=== PATIENT | female | born 1960 | race Caucasian/White ===

== ENCOUNTER 2017-12-31 14:38 | Inpatient (IN) | payer MEDICARE, OTHER ==
[~2017-12-31] VITALS: Ht 167.6 cm; Wt 72.6 kg
[2017-12-31 14:42] VITALS: BP 115/60
--- NOTE | 2017-12-31 14:49 | Emergency Room Report ---
History of Present Illness General Chief Complaint: Upper Respiratory Illness Source: Patient, EMS Present Illness HPI 57-year-old female, history of pacemaker, COPD, presenting with cough and shortness of breath for one week. States that she is short of breath at rest and on exertion. Denies any fever chills nausea vomiting. States that she still currently smokes 4 cigarettes a day. No chest pain or abdominal pain Allergies: Coded Allergies: No Known Allergies (Unverified , 12/31/17) Patient History Past Medical History: see triage record Past Surgical History: none Pertinent Family History: none Last Menstrual Period: N/A Reviewed Nursing Documentation: PMH: Agreed; PSxH: Agreed Nursing Documentation-PMH Past Medical History: No History, Except For History Of Psychiatric Problem: Yes - SCHIZOPHRENIA Review of Systems All Other Systems: negative except mentioned in HPI Physical Exam Vital Signs Date Time Temp Pulse Resp B/P (MAP) Pulse Ox O2 Delivery O2 Flow Rate FiO2 12/31/17 14:32 97.7 65 16 115/60 96 Room Air 97.7 Sp02 EP Interpretation: reviewed, normal General Appearance: alert, GCS 15, non-toxic, mild distress Head: normocephalic, atraumatic Eyes: bilateral eye normal inspection, bilateral eye PERRL, bilateral eye EOMI ENT: normal ENT inspection, normal pharynx, normal voice, moist mucus membranes Neck: normal inspection, full range of motion, supple Respiratory: other - Wheezing and coarse breath sounds worse on the left side than the right, speaking complete sentences Cardiovascular #1: normal inspection, regular rate, rhythm, no edema, normal capillary refill Cardiovascular #2: 2+ radial (R), 2+ radial (L) Gastrointestinal: normal inspection, non tender, soft, non-distended, no guarding Musculoskeletal: normal inspection, back normal, normal range of motion, non- tender Neurologic: normal inspection, alert, oriented x3, responsive, motor strength/ tone normal, sensory intact, normal gait, speech normal Psychiatric: normal inspection, judgement/insight normal, memory normal Skin: normal inspection, normal color, no rash, warm/dry, well hydrated, normal turgor Medical Decision Making Diagnostic Impression: Primary Impression: COPD exacerbation ER Course 57-year-old female p/w cough for 7 days. DDX: Viral URI vs. pneumonia Plan: labs, CXR, antibiotics ER course: given nebs, steroids, abx speaking in complete sentences, repeat lung exam improved Disposition: Patient is to be admitted to med-surg unit. D/w hospitalist Dr Messina EKG Diagnostic Results EP Interpretation: Yes Rate: normal Rhythm: NSR ST Segments: No acute changes ASA given to patient: No Chest X-ray CXR: Ordered: Yes 1 view Indication: SOB EP interpretation: Yes Interpretation: no acute process Impression: no acute process Electronically signed by Alexey Romero MD Laboratory Tests Test 12/31/17 15:06 White Blood Count 7.7 K/UL (4.8-10.8) Red Blood Count 4.59 M/UL (4.20-5.40) Hemoglobin 14.5 G/DL (12.0-16.0) Hematocrit 40.3 % (37.0-47.0) Mean Corpuscular Volume 88 FL (80-99) Mean Corpuscular Hemoglobin 31.7 PG (27.0-31.0) H Mean Corpuscular Hemoglobin Concent 36.1 G/DL (32.0-36.0) H Red Cell Distribution Width 11.8 % (11.6-14.8) Platelet Count 244 K/UL (150-450) Mean Platelet Volume 7.0 FL (6.5-10.1) Neutrophils (%) (Auto) 64.7 % (45.0-75.0) Lymphocytes (%) (Auto) 26.1 % (20.0-45.0) Monocytes (%) (Auto) 6.0 % (1.0-10.0) Eosinophils (%) (Auto) 2.4 % (0.0-3.0) Basophils (%) (Auto) 0.8 % (0.0-2.0) Prothrombin Time 9.6 SEC (9.30-11.50) Prothrombin Time INR 0.9 (0.9-1.1) PTT 27 SEC (23-33) Urine Color Pale yellow Urine Appearance Clear Urine pH 7 (4.5-8.0) Urine Specific [place] 1.005 (1.005-1.035) Urine Protein Negative (NEGATIVE) Urine Glucose (UA) Negative (NEGATIVE) Urine Ketones Negative (NEGATIVE) Urine Occult Blood Negative (NEGATIVE) Urine Nitrite Negative (NEGATIVE) Urine Bilirubin Negative (NEGATIVE) Urine Urobilinogen Normal MG/DL (0.0-1.0) Urine Leukocyte Esterase Negative (NEGATIVE) Sodium Level 142 MMOL/L (136-145) Potassium Level 3.8 MMOL/L (3.5-5.1) Chloride Level 104 MMOL/L (98-107) Carbon Dioxide Level 28 MMOL/L (21-32) Anion Gap 10 mmol/L (5-15) Blood Urea Nitrogen 10 mg/dL (7-18) Creatinine 0.7 MG/DL (0.55-1.30) Estimate Glomerular Filtration Rate > 60 mL/min (>60) Glucose Level 90 MG/DL (74-106) Lactic Acid Level 0.90 mmol/L (0.66-2.22) Calcium Level 8.9 MG/DL (8.5-10.1) Total Bilirubin 0.3 MG/DL (0.2-1.0) Aspartate Amino Transferase (AST) 13 U/L (15-37) L Alanine Aminotransferase (ALT) 15 U/L (12-78) Alkaline Phosphatase 89 U/L (46-116) Troponin I 0.000 ng/mL (0.000-0.056) Pro-B-Type Natriuretic Peptide 144 pg/mL (0-125) H Total Protein 7.0 G/DL (6.4-8.2) Albumin 3.4 G/DL (3.4-5.0) Globulin 3.6 g/dL Albumin/Globulin Ratio 0.9 (1.0-2.7) L Last Vital Signs Date Time Temp Pulse Resp B/P (MAP) Pulse Ox O2 Delivery O2 Flow Rate FiO2 12/31/17 14:32 97.7 65 16 115/60 96 Room Air 97.7 Disposition: ADMITTED INPATIENT Condition: Serious Alexey Romero M.D. Dec 31, 2017 14:49
[2017-12-31] MEDS ORDERED: Ipratropium 0.02% Inh Soln 2.5ml UD HHN ONE (15:00)
[2017-12-31] MEDS ORDERED: Solu-MEDROL 125mg Inj IVP ONE (15:00)
[2017-12-31] MEDS: Albuterol ud Inhalation HHN SCH (15:08)
--- NOTE | 2017-12-31 15:35 | Diagnostic Imaging Report ---
Indication: Shortness of breath Technique: One view of the chest Comparison: none Findings: Lungs and pleural spaces are clear. There is a left chest pacemaker. Normal heart size Impression: No acute process
[2017-12-31 15:36] LABS: APPEARANCE,URINE CLEAR; BASOPHILS % (AUTO) 0.8 % (0.0-2.0); BILIRUBIN, URINE NEGATIVE (NEGATIVE); COLOR,URINE PALE YELLOW; EOSINOPHILS % (AUTO) 2.4 % (0.0-3.0); GLUCOSE, URINE (UA) NEGATIVE (NEGATIVE); HEMATOCRIT 40.3 % (37.0-47.0); HEMOGLOBIN 14.5 G/DL (12.0-16.0); KETONES,URINE NEGATIVE (NEGATIVE); LEUKOCYTE ESTERASE ,URINE NEGATIVE (NEGATIVE); LYMPHOCYTES % (AUTO) 26.1 % (20.0-45.0); MEAN CORPUSCULAR VOLUME 88 FL (80-99); NEUTROPHILS % (AUTO) 64.7 % (45.0-75.0); NITRITE,URINE NEGATIVE (NEGATIVE); PH,URINE 7 (4.5-8.0); PLATELET COUNT 244 K/UL (150-450); PROTEIN,URINE NEGATIVE (NEGATIVE); RED BLOOD COUNT 4.59 M/UL (4.20-5.40); RED CELL DISTRIBUTION WIDTH 11.8 % (11.6-14.8); UROBILINOGEN,URINE NORMAL MG/DL (0.0-1.0); WHITE BLOOD COUNT 7.7 K/UL (4.8-10.8)
[2017-12-31 15:40] LABS: INR 0.9 (0.9-1.1)
[2017-12-31 15:41] LABS: ANION GAP 10 mmol/L (5-15); BLOOD UREA NITROGEN 10 mg/dL (7-18); CALCIUM 8.9 MG/DL (8.5-10.1); CARBON DIOXIDE 28 MMOL/L (21-32); CHLORIDE 104 MMOL/L (98-107); CREATININE 0.7 MG/DL (0.55-1.30); POTASSIUM 3.8 MMOL/L (3.5-5.1); SODIUM 142 MMOL/L (136-145)
[2017-12-31 15:54] LABS: ALANINE AMINOTRANSFERASE 15 U/L (12-78); ALBUMIN 3.4 G/DL (3.4-5.0); ALBUMIN/GLOBULIN RATIO 0.9 (1.0-2.7); ALKALINE PHOSPHATASE 89 U/L (46-116); ASPARTATE AMINO TRANSFERASE 13 U/L (15-37); BILIRUBIN,TOTAL 0.3 MG/DL (0.2-1.0)
[2017-12-31 17:45] VITALS: BP 92/57
[2017-12-31 17:55] VITALS: BP 113/71
[2017-12-31] MEDS ORDERED: CITALOPRAM HBR40 M1 ORAL (18:41)
[2017-12-31] MEDS ORDERED: ADVAIR 250-501 EACH INH (18:41)
[2017-12-31] MEDS ORDERED: ASPIR 8181 MG ORAL (18:41)
[2017-12-31] MEDS ORDERED: KLONOPIN1 MG ORAL (18:42)
[2017-12-31] MEDS ORDERED: FUROSEMIDE40 MG ORAL (18:42)
[2017-12-31] MEDS ORDERED: RANITIDINE HCL150 M2 PO (18:46)
[2017-12-31] MEDS ORDERED: POTASSIUM CHLOR8 ME3 PO (18:46)
[2017-12-31] MEDS ORDERED: LOSARTAN POTASS50 MG ORAL (18:46)
[2017-12-31] MEDS ORDERED: VESICARE5 MG ORAL (18:49)
[2017-12-31] MEDS ORDERED: NORCO 5-325 TA1 EAC1 ORAL (18:49)
[2017-12-31] MEDS ORDERED: IBUPROFEN600 MG ORAL (18:49)
[2017-12-31] MEDS ORDERED: SIMVASTATIN20 MG ORAL (18:49)
[2017-12-31] MEDS ORDERED: RISPERIDONE3 MG ORAL (18:49)
[2017-12-31] MEDS ORDERED: Norco 5mg/325mg tab ORAL PRN (19:00)
[2017-12-31 19:51] VITALS: BP 128/65
[2017-12-31] MEDS: Losartan 50mg tab ORAL SCH (21:51)
[2017-12-31 23:42] VITALS: BP 146/70
[2018-01-01 04:06] VITALS: BP 141/79
[2018-01-01 08:00] VITALS: BP 139/68
[2018-01-01] MEDS: Aspirin Baby 81mg ORAL SCH (08:28)
[2018-01-01] MEDS: Citalopram 20mg Tab ORAL SCH (08:29)
[2018-01-01] MEDS: Furosemide 40mg tab ORAL SCH (08:30)
[2018-01-01] MEDS: Losartan 50mg tab ORAL SCH ×2 (08:31→20:52)
[2018-01-01] MEDS: cefTRIAXone 1 GM in D5W 110 ML IVPB SCH (11:23)
[2018-01-01 12:00] VITALS: BP 138/71
[2018-01-01 16:00] VITALS: BP 149/74
[2018-01-01] MEDS ORDERED: Albuterol/Ipratropium 3ml neb HHN PRN (17:30)
--- NOTE | 2018-01-01 17:49 | Consultation ---
Consult Note Consult Note PCCM CONSULTATION REFERRING PHYSICIAN: Nita Messina MD REASON FOR CONSULTATION: COPD exacerbation HPI: 57 F current daily smoker h/o COPD only on Advair and PRN Ventolin @ home p /w one week of cough, congestion, inc SOB and wheezing, no F/C, no RICHEY, no dizziness, no CP, no NVDC. In the ED she was AFVSS, CXR NAD, stable on RA, better with HHN's and steroids, admitted for an acute COPD exacerbation. PMH: COPD, CHF, SSS S/P PM, HTN PSH: Gynecologic ALL: Acetaminophen, Advil, Aleve Active Scripts Medications Dose Route/Sig Max Daily Dose Days Date Category Motrin* (Ibuprofen) 600 Mg Tablet 600 Mg ORAL Q8H PRN 12/31/17 Reported [place] 5-325 Tablet* (Acetaminophen/Hydrocodone Bitart) 1 Each Tablet 1 Tab ORAL Q4H PRN 12/31/17 Reported Vesicare* (Solifenacin) 5 Mg Tablet 5 Mg ORAL DAILY 12/31/17 Reported Zocor (Simvastatin) 20 Mg Tablet 20 Mg ORAL BEDTIME 12/31/17 Reported Risperidone 3 Mg Tablet 3 Mg ORAL BID 12/31/17 Reported Ranitidine HCl 150 Mg Tablet 150 Mg PO DAILY 12/31/17 Reported Potassium Chloride 8 Meq Tablet.er 8 Meq PO DAILY 12/31/17 Reported Losartan Potassium* (Losartan Potassium) 50 Mg Tablet 50 Mg ORAL TWICE A DAY 12/31/17 Reported Lasix* (Furosemide) 40 Mg Tablet 40 Mg ORAL DAILY 12/31/17 Reported Klonopin* (Clonazepam) 1 Mg Tablet 2 Mg ORAL DAILY 12/31/17 Reported Citalopram Hbr* (Citalopram Hydrobromide) 40 Mg Tablet 40 Mg ORAL DAILY 12/31/17 Reported Advair 250-50 Diskus (Salmeterol Xinafoate/Fluticasone) 1 Each Blst.w.dev 2 Puff INH TWICE A DAY 12/31/17 Reported Aspir 81* (Aspirin) 81 Mg Tablet.dr 81 Mg ORAL DAILY 12/31/17 Reported Current Medications Medications (Trade) Dose Ordered Sig/Chava Route PRN Reason Start Time Stop Time Status Last Admin Dose Admin Acetaminophen/ Hydrocodone Bitart ([place] 5/325) 1 tab Q4H PRN ORAL Moderate Pain (Pain Scale 4-6) 12/31/17 19:00 01/07/18 18:59 Albuterol/ Ipratropium (Albuterol/ Ipratropium) 3 ml Q4H PRN HHN Shortness of Breath 01/01/18 17:30 01/06/18 17:29 UNV Albuterol/ Ipratropium (Albuterol/ Ipratropium) 3 ml Q6HRT HHN 01/01/18 19:00 01/06/18 18:59 UNV Aspirin (ASA) 81 mg DAILY ORAL 01/01/18 09:00 01/31/18 08:59 01/01/18 08:28 Atorvastatin Calcium (Lipitor) 10 mg BEDTIME ORAL 12/31/17 21:00 01/30/18 20:59 12/31/17 21:51 Ceftriaxone Sodium 1 gm/ Dextrose 110 ml @ 220 mls/hr Q24H IVPB 01/01/18 09:00 01/08/18 08:59 01/01/18 11:23 Citalopram Hydrobromide (celeXA) 40 mg DAILY ORAL 01/01/18 09:00 01/31/18 08:59 01/01/18 08:29 Clonazepam (KlonoPIN) 1 mg TWICE A DAY ORAL 01/01/18 09:00 01/08/18 08:59 01/01/18 17:25 Doxycycline Monohydrate (Vibramycin) 100 mg EVERY 12 HOURS ORAL 01/01/18 21:00 01/08/18 20:59 UNV Famotidine (Pepcid) 20 mg QHS ORAL 12/31/17 21:00 01/30/18 20:59 12/31/17 21:50 Furosemide (Lasix) 40 mg DAILY ORAL 01/01/18 09:00 01/31/18 08:59 01/01/18 08:30 Heparin Sodium (Porcine) (Heparin 5000 units/ml) 5,000 units EVERY 12 HOURS SUBQ 01/01/18 21:00 01/31/18 20:59 UNV Ibuprofen (Motrin) 600 mg Q8HR PRN ORAL FOR MILD PAIN 12/31/17 19:00 01/30/18 18:59 Losartan Potassium (Cozaar) 50 mg EVERY 12 HOURS ORAL 12/31/17 21:00 01/30/18 20:59 01/01/18 08:31 Potassium Chloride (K-Dur) 10 meq DAILY ORAL 01/01/18 09:00 01/31/18 08:59 01/01/18 08:29 Prednisone (predniSONE) 40 mg DAILY ORAL 01/02/18 09:00 02/01/18 08:59 UNV Risperidone (RisperDAL) 3 mg TWICE A DAY ORAL 12/31/17 20:00 01/30/18 19:59 01/01/18 17:25 Salmeterol Xinafoate/ Fluticasone (Advair 250/50 Diskus) 1 puffs BID INH 01/01/18 18:00 01/31/18 17:59 UNV SHX: 1 PPD tob, no EtOH/DA FHx: N/C ROS: Neg other than HPI PE: Last 24 Hour Vital Signs Date Time Temp Pulse Resp B/P (MAP) Pulse Ox O2 Delivery O2 Flow Rate FiO2 01/01/18 16:00 98.1 70 19 149/74 93 98.1 01/01/18 12:00 97.9 63 20 138/71 94 97.9 01/01/18 08:31 139/68 01/01/18 08:00 97.7 64 18 139/68 92 97.7 01/01/18 04:06 97.0 63 20 141/79 94 Room Air 97.0 12/31/17 23:42 97.7 61 20 146/70 95 Room Air 97.7 12/31/17 21:51 128/65 12/31/17 19:51 97.3 77 20 128/65 100 Room Air 97.3 12/31/17 17:55 98.6 81 18 113/71 97 98.6 12/31/17 17:45 97.3 76 20 92/57 97 Room Air 97.3 12/31/17 17:45 97.3 76 20 92/57 97 Room Air 97.7 NAD, AAOX3 NC/AT, OPC c MMM Supple s LAD or JVD CTA but distant and faint EEW RRR S/NT/ND c NABS NO C/C/E Labs Test 12/31/17 15:06 White Blood Count 7.7 K/UL (4.8-10.8) Red Blood Count 4.59 M/UL (4.20-5.40) Hemoglobin 14.5 G/DL (12.0-16.0) Hematocrit 40.3 % (37.0-47.0) Mean Corpuscular Volume 88 FL (80-99) Mean Corpuscular Hemoglobin 31.7 PG (27.0-31.0) Mean Corpuscular Hemoglobin Concent 36.1 G/DL (32.0-36.0) Red Cell Distribution Width 11.8 % (11.6-14.8) Platelet Count 244 K/UL (150-450) Mean Platelet Volume 7.0 FL (6.5-10.1) Neutrophils (%) (Auto) 64.7 % (45.0-75.0) Lymphocytes (%) (Auto) 26.1 % (20.0-45.0) Monocytes (%) (Auto) 6.0 % (1.0-10.0) Eosinophils (%) (Auto) 2.4 % (0.0-3.0) Basophils (%) (Auto) 0.8 % (0.0-2.0) Prothrombin Time 9.6 SEC (9.30-11.50) Prothromb Time International Ratio 0.9 (0.9-1.1) Activated Partial Thromboplast Time 27 SEC (23-33) Urine Color Pale yellow Urine Appearance Clear Urine pH 7 (4.5-8.0) Urine Specific [place] 1.005 (1.005-1.035) Urine Protein Negative (NEGATIVE) Urine Glucose (UA) Negative (NEGATIVE) Urine Ketones Negative (NEGATIVE) Urine Occult Blood Negative (NEGATIVE) Urine Nitrite Negative (NEGATIVE) Urine Bilirubin Negative (NEGATIVE) Urine Urobilinogen Normal MG/DL (0.0-1.0) Urine Leukocyte Esterase Negative (NEGATIVE) Sodium Level 142 MMOL/L (136-145) Potassium Level 3.8 MMOL/L (3.5-5.1) Chloride Level 104 MMOL/L (98-107) Carbon Dioxide Level 28 MMOL/L (21-32) Anion Gap 10 mmol/L (5-15) Blood Urea Nitrogen 10 mg/dL (7-18) Creatinine 0.7 MG/DL (0.55-1.30) Estimat Glomerular Filtration Rate > 60 mL/min (>60) Glucose Level 90 MG/DL (74-106) Lactic Acid Level 0.90 mmol/L (0.66-2.22) Calcium Level 8.9 MG/DL (8.5-10.1) Total Bilirubin 0.3 MG/DL (0.2-1.0) Aspartate Amino Transf (AST/SGOT) 13 U/L (15-37) Alanine Aminotransferase (ALT/SGPT) 15 U/L (12-78) Alkaline Phosphatase 89 U/L (46-116) Troponin I 0.000 ng/mL (0.000-0.056) Pro-B-Type Natriuretic Peptide 144 pg/mL (0-125) Total Protein 7.0 G/DL (6.4-8.2) Albumin 3.4 G/DL (3.4-5.0) Globulin 3.6 g/dL Albumin/Globulin Ratio 0.9 (1.0-2.7) Assessment/Plan ASSESSMENT: * COPD with acute exacerbation * Bronchitis * Current daily smoker * CHF, SSS S/P PM, HTN PLAN: * Optimize pulmonary hygiene/mobilize as tolerated * PRN O2 to keep SaO2 > 90% * RTC and PRN DUOnebs * Continue Advair, will add Spiriva prior to discharge * Pred 40 (D1/5) * Azithro (D1/5) * Mucinex and PRN Robitussin * Monitor volumes * DVT Px: Hep SQ * Aspiration precautions * Continue to encourage abstinence from tobacco * Should have PFT's and a screening CT chest as an outpatient NANCI ALVARADO M.D. Jan 01, 2018 17:49
[2018-01-01] MEDS ORDERED: guaiFENesin DM 100mg/5ml ORAL PRN (18:00)
[2018-01-01] MEDS: Advair 250/50 Inhaler - 14 dose INH SCH (18:00)
--- NOTE | 2018-01-01 18:30 | Consultation ---
DATE OF CONSULTATION: 01/01/2018 INFECTIOUS DISEASE CONSULTATION This consultation has been done on behalf of Dr. Pranay Meza. CONSULTING PHYSICIAN: Caro Ortiz M.D. REFERRING PHYSICIAN: Nita Verduzco M.D. REASON FOR CONSULTATION: Pneumonia. HISTORY OF PRESENTING ILLNESS: This is a 57-year-old lady with history of COPD, hypertension, status post pacemaker placement, who comes in with cough and shortness of breath. She was seen in [place] where there was concern for pneumonia and an Infectious Diseases consultation has been obtained for antibiotics. PAST MEDICAL HISTORY: 1. History of COPD. 2. History of asthma. 3. Schizophrenia. 4. History of hypertension. MEDICATIONS: As an inpatient, the patient is on aspirin, Celexa, Lasix, potassium, Klonopin, ceftriaxone, Cozaar, Pepcid, Lipitor, Risperdal, [place], and ibuprofen. ALLERGIES: 1. Acetaminophen. 2. Advil. 3. Aleve. 4. Tylenol. SOCIAL HISTORY: She does not smoke, drink, or use drugs. FAMILY HISTORY: Unknown. REVIEW OF SYSTEMS: RESPIRATORY: No fever or chills. She has cough and shortness of breath. No chest pain. CARDIAC: No chest pain. No palpitations. No dizziness. No syncope. GASTROINTESTINAL: No nausea. No vomiting. No abdominal pain or diarrhea. PHYSICAL EXAMINATION: VITAL SIGNS: Temperature of 97.7 degrees, T-max of 98.6 degrees, pulse of 64, respiratory rate of 18, blood pressure 139/68, and O2 saturation of 92%. HEENT: Pupils equally reactive to light and accommodation. Mouth appears clean without thrush. NECK: Supple. No adenopathy. No JVD. CARDIOVASCULAR: Regular rate and rhythm. No murmurs. LUNGS: Clear to auscultation bilaterally. No crackles. No wheezes. ABDOMEN: Soft and nontender. No organomegaly. EXTREMITIES: No cyanosis, no clubbing, and no edema. LABORATORY AND DIAGNOSTIC DATA: White count 7.7, hemoglobin 14.5, hematocrit 40.3, MCV 88, platelet count of 244,000; neutrophils of 64%. Sodium 142, potassium 3.8, chloride 104, bicarbonate 28, BUN 10, creatinine 0.7, glucose 90, calcium 8.9, total bilirubin 0.3, AST 13, ALT 15, and alkaline phosphatase 89. Troponin zero. Beta-natriuretic peptide 142. Total protein of 7. Albumin 3.4. UA, LE negative, nitrite negative. Chest x-ray is showing no acute process. ASSESSMENT: 1. This is a 57-year-old lady with history of hypertension, COPD, and schizophrenia, who comes in with possible COPD exacerbation or pneumonia. Her initial chest x-ray is negative. 2. Hypertension. PLAN: 1. Continue ceftriaxone. 2. We will order sputum for Gram stain and culture. 3. We will follow up cultures and narrow treatment zone. I would like to thank, Dr. Verduzco, for this consultation. Caro Ortiz M.D. DR: BEE JOB#: [id number] CC: Nita Verduzco M.D.; Fax#: [phone]
[2018-01-01] MEDS: guaiFENesin ER 600mg tab ORAL SCH (18:42)
[2018-01-01] MEDS: Albuterol/Ipratropium 3ml neb HHN SCH (19:00)
--- NOTE | 2018-01-01 19:30 | History and Physical Report ---
DATE OF ADMISSION: 12/31/2017 HISTORY OF PRESENT ILLNESS: The patient is admitted for COPD exacerbation. The patient has been coughing, nonproductive as well as wheezing. Admitted for respiratory insufficiency due to COPD exacerbation. The patient is a heavy smoker as well. Denies any chills. Denies nausea, vomiting, or diarrhea. No fever or chills. Denies any coughing. Denies chest pain. Denies rectal bleeding. The patient has been having nonproductive coughing. The patient wheezing over the past couple of days in the facility. PAST MEDICAL HISTORY: Psychosis, mood disorder, anxiety, COPD, GERD, and hyperlipidemia. MEDICATIONS: Klonopin, Celexa, aspirin, losartan, ranitidine, risperidone, and simvastatin. ALLERGIES: Advil, Aleve, Tylenol, ibuprofen, and naproxen. SOCIAL HISTORY: The patient smokes. Denies history of alcohol or illicit drugs. Lives in an assisted living. FAMILY HISTORY: Noncontributory. REVIEW OF SYSTEMS: HEENT: Denies headaches. RESPIRATORY: Positive for shortness of breath, wheezing, and cough nonproductive for the past couple of days. CARDIOVASCULAR: Denies chest pain. No orthopnea. GASTROINTESTINAL: Denies nausea, vomiting, or diarrhea. EXTREMITIES: Denies pain. CENTRAL NERVOUS SYSTEM: No change in vision or speech pattern. PHYSICAL EXAMINATION: VITAL SIGNS: Temperature is 97.7 degrees, pulse is 61, blood pressure is 146/70. HEENT: PERRLA. NECK: Supple. No lymphadenopathy. CHEST: There is bibasilar wheezing. CARDIOVASCULAR: Regular rate and rhythm. GASTROINTESTINAL: Soft, nontender, and nondistended. No organomegaly. EXTREMITIES: No edema. Reflexes equal on both sides. LABORATORY DATA: WBC of 7.2, hemoglobin 14.5, and platelet 244,000. Sodium 142, potassium 3.8, chloride 104, glucose of 90, BUN of 10, and creatinine 0.7. Chest x-ray shows findings compatible with COPD. ASSESSMENT AND PLAN: 1. Chronic obstructive pulmonary disease exacerbation. 2. Respiratory insufficiency. 3. I have asked Dr. Brown and Dr. Pranay Meza to see the patient for chronic obstructive pulmonary disease exacerbation as well as to rule out bronchitis and Dr. Stauffer has been consulted for her low potassium and to manage potassium. Ali Cecilia Verduzco DR: Rosenda JOB#: [id number] CC:
[2018-01-01 20:41] VITALS: BP 141/74
[2018-01-01] MEDS: Heparin 5000 units/ml inj SUBQ SCH (20:53)
[2018-01-02 00:18] VITALS: BP 137/71
[2018-01-02] MEDS: Albuterol/Ipratropium 3ml neb HHN SCH ×4 (01:00→19:48)
[2018-01-02 04:14] VITALS: BP 136/69
[2018-01-02 08:00] VITALS: BP 136/75
[2018-01-02] MEDS: Citalopram 20mg Tab ORAL SCH (09:07)
[2018-01-02] MEDS: cefTRIAXone 1 GM in D5W 110 ML IVPB SCH (09:07)
[2018-01-02] MEDS: Losartan 50mg tab ORAL SCH ×2 (09:08→20:50)
[2018-01-02] MEDS: guaiFENesin ER 600mg tab ORAL SCH ×2 (09:08→18:13)
[2018-01-02] MEDS: Furosemide 40mg tab ORAL SCH (09:08)
[2018-01-02] MEDS: Aspirin Baby 81mg ORAL SCH (09:11)
[2018-01-02] MEDS: Heparin 5000 units/ml inj SUBQ SCH ×2 (09:39→20:54)
[2018-01-02] MEDS: Advair 250/50 Inhaler - 14 dose INH SCH ×2 (09:50→19:38)
--- NOTE | 2018-01-02 11:48 | Infectious Diseases Prog Note ---
Assessment/Plan Assessment/Plan A; COPD exacerbation HPN Schizophrenia s/p pacemaker P; Continue Rocephin & Doxycycline Subjective ROS Limited/Unobtainable: No Constitutional: Reports: no symptoms Respiratory: Reports: no symptoms Cardiovascular: Reports: no symptoms Gastrointestinal/Abdominal: Reports: no symptoms Genitourinary: Reports: no symptoms Allergies: Coded Allergies: ACETAMINOPHEN (Unverified Allergy, Severe, 01/01/18) IBUPROFEN (Unverified Allergy, Severe, 01/01/18) NAPROXEN (Unverified Allergy, Severe, 01/01/18) Uncoded Allergies: Advil, Aleve, Tylenol (Allergy, Intermediate, Anaphylaxis, 12/31/17) facial swelling Objective Vital Signs Last 24 Hour Vital Signs Date Time Temp Pulse Resp B/P (MAP) Pulse Ox O2 Delivery O2 Flow Rate FiO2 01/02/18 09:08 136/75 01/02/18 08:00 98.4 66 20 136/75 91 98.4 01/02/18 07:45 76 16 97 Room Air 21 01/02/18 07:45 Room Air 01/02/18 04:14 97.1 61 17 136/69 96 97.1 01/02/18 04:00 Room Air 01/02/18 01:01 Room Air 01/02/18 01:00 Room Air 01/02/18 00:18 96.9 57 18 137/71 93 96.9 01/02/18 00:00 Room Air 01/01/18 20:52 141/74 01/01/18 20:41 96.6 60 18 141/74 93 Room Air 96.6 01/01/18 20:00 Room Air 01/01/18 20:00 Room Air 01/01/18 20:00 Room Air 01/01/18 16:00 98.1 70 19 149/74 93 98.1 01/01/18 12:00 97.9 63 20 138/71 94 97.9 Height (Feet): 5 Height (Inches): 6.00 Weight (Pounds): 160 General Appearance: no acute distress HEENT: mucous membranes moist Respiratory/Chest: chest wall non-tender Cardiovascular: normal rate Abdomen: soft, non tender Extremities: no edema Neurologic/Psychiatric: alert, responsive Microbiology Date/Time Source Procedure Growth Status 12/31/17 15:06 Blood Blood Culture - Preliminary NO GROWTH AFTER 24 HOURS Resulted 4/13/18 15:06 Blood Blood Culture - Preliminary NO GROWTH AFTER 24 HOURS Resulted Current Medications Medications (Trade) Dose Ordered Sig/Chava Route PRN Reason Start Time Stop Time Status Last Admin Dose Admin Acetaminophen/ Hydrocodone Bitart ([place] 5/325) 1 tab Q4H PRN ORAL Moderate Pain (Pain Scale 4-6) 12/31/17 19:00 01/07/18 18:59 Albuterol/ Ipratropium (Albuterol/ Ipratropium) 3 ml Q4H PRN HHN Shortness of Breath 01/01/18 17:30 01/06/18 17:29 Albuterol/ Ipratropium (Albuterol/ Ipratropium) 3 ml Q6HRT HHN 01/01/18 19:00 01/06/18 18:59 Aspirin (ASA) 81 mg DAILY ORAL 01/01/18 09:00 01/31/18 08:59 01/02/18 09:11 Atorvastatin Calcium (Lipitor) 10 mg BEDTIME ORAL 12/31/17 21:00 01/30/18 20:59 01/01/18 20:52 Ceftriaxone Sodium 1 gm/ Dextrose 110 ml @ 220 mls/hr Q24H IVPB 01/01/18 09:00 01/08/18 08:59 01/02/18 09:07 Citalopram Hydrobromide (celeXA) 40 mg DAILY ORAL 01/01/18 09:00 01/31/18 08:59 01/02/18 09:07 Clonazepam (KlonoPIN) 1 mg TWICE A DAY ORAL 01/01/18 09:00 01/08/18 08:59 01/02/18 09:09 Doxycycline Monohydrate (Vibramycin) 100 mg EVERY 12 HOURS ORAL 01/01/18 21:00 01/08/18 20:59 01/02/18 09:08 Famotidine (Pepcid) 20 mg QHS ORAL 12/31/17 21:00 01/30/18 20:59 01/01/18 20:52 Furosemide (Lasix) 40 mg DAILY ORAL 01/01/18 09:00 01/31/18 08:59 01/02/18 09:08 Guaifenesin (Mucinex ER) 600 mg TWICE A DAY ORAL 01/01/18 18:00 01/31/18 17:59 01/02/18 09:08 Guaifenesin/ Dextromethorphan (Robitussin DM) 5 ml Q4H PRN ORAL For Cough 01/01/18 18:00 01/31/18 17:59 Heparin Sodium (Porcine) (Heparin 5000 units/ml) 5,000 units EVERY 12 HOURS SUBQ 01/01/18 21:00 01/31/18 20:59 01/02/18 09:39 Ibuprofen (Motrin) 600 mg Q8HR PRN ORAL FOR MILD PAIN 12/31/17 19:00 01/30/18 18:59 Losartan Potassium (Cozaar) 50 mg EVERY 12 HOURS ORAL 12/31/17 21:00 01/30/18 20:59 01/02/18 09:08 Potassium Chloride (K-Dur) 10 meq DAILY ORAL 01/01/18 09:00 01/31/18 08:59 01/02/18 09:08 Prednisone (predniSONE) 40 mg DAILY ORAL 01/02/18 09:00 02/01/18 08:59 01/02/18 09:07 Risperidone (RisperDAL) 3 mg TWICE A DAY ORAL 12/31/17 20:00 01/30/18 19:59 01/02/18 09:07 Salmeterol Xinafoate/ Fluticasone (Advair 250/50 Diskus) 1 puffs BID INH 01/01/18 18:00 01/31/18 17:59 MARI DUVALL Jan 02, 2018 11:48
[2018-01-02 12:00] VITALS: BP 153/84
[2018-01-02 16:00] VITALS: BP 120/77
--- NOTE | 2018-01-02 16:02 | Pulmonology Progress Note ---
Assessment/Plan Problems: (1) COPD exacerbation Assessment/Plan SSESSMENT: * COPD with acute exacerbation * Bronchitis * Current daily smoker * Schizophrenia * CHF, SSS S/P PM, HTN PLAN: * Optimize pulmonary hygiene/mobilize as tolerated * PRN O2 to keep SaO2 > 90% * RTC and PRN DUOnebs * Continue Advair, will add Spiriva prior to discharge * Pred 40 (D2) * Doxy & CTx (D2) per ID * Mucinex and PRN Robitussin * Monitor volumes * DVT Px: Hep SQ * Aspiration precautions * Continue to encourage abstinence from tobacco * Should have PFT's and a screening CT chest as an outpatient Subjective Allergies: Coded Allergies: ACETAMINOPHEN (Unverified Allergy, Severe, 01/01/18) IBUPROFEN (Unverified Allergy, Severe, 01/01/18) NAPROXEN (Unverified Allergy, Severe, 01/01/18) Uncoded Allergies: Advil, Aleve, Tylenol (Allergy, Intermediate, Anaphylaxis, 12/31/17) facial swelling Subjective AFVSS, stable on RA Less cough, no wheezing, less SOB No F/C, no CP, no NVDC Objective Last 24 Hour Vital Signs Date Time Temp Pulse Resp B/P (MAP) Pulse Ox O2 Delivery O2 Flow Rate FiO2 01/02/18 13:45 Room Air 01/02/18 13:45 Room Air 01/02/18 12:00 98.1 67 18 153/84 95 98.1 01/02/18 09:08 136/75 01/02/18 08:00 98.4 66 20 136/75 91 98.4 01/02/18 07:45 76 16 97 Room Air 21 01/02/18 07:45 Room Air 01/02/18 04:14 97.1 61 17 136/69 96 97.1 01/02/18 04:00 Room Air 01/02/18 01:01 Room Air 01/02/18 01:00 Room Air 01/02/18 00:18 96.9 57 18 137/71 93 96.9 01/02/18 00:00 Room Air 01/01/18 20:52 141/74 01/01/18 20:41 96.6 60 18 141/74 93 Room Air 96.6 01/01/18 20:00 Room Air 01/01/18 20:00 Room Air 01/01/18 20:00 Room Air Intake and Output 01/01/18 01/02/18 19:00 07:00 Intake Total 760 ml 600 ml Balance 760 ml 600 ml Intake Oral 650 ml 600 ml IV Total 110 ml # Voids 3 2 # Bowel Movements 1 General Appearance: WD/WN, no acute distress HEENT: normocephalic, atraumatic, anicteric, mucous membranes moist Respiratory/Chest: chest wall non-tender, lungs clear - but distanat, no respiratory distress, no accessory muscle use Cardiovascular: normal peripheral pulses, normal rate, regular rhythm Abdomen: normal bowel sounds, soft, non tender, no organomegaly, non distended , no mass Extremities: no cyanosis, no clubbing, no edema Microbiology Date/Time Source Procedure Growth Status 12/31/17 15:06 Blood Blood Culture - Preliminary NO GROWTH AFTER 24 HOURS Resulted 12/31/17 15:06 Blood Blood Culture - Preliminary NO GROWTH AFTER 24 HOURS Resulted Current Medications Medications (Trade) Dose Ordered Sig/Chava Route PRN Reason Start Time Stop Time Status Last Admin Dose Admin Acetaminophen/ Hydrocodone Bitart ([place] 5/325) 1 tab Q4H PRN ORAL Moderate Pain (Pain Scale 4-6) 12/31/17 19:00 01/07/18 18:59 Albuterol/ Ipratropium (Albuterol/ Ipratropium) 3 ml Q4H PRN HHN Shortness of Breath 01/01/18 17:30 01/06/18 17:29 Albuterol/ Ipratropium (Albuterol/ Ipratropium) 3 ml Q6HRT HHN 01/01/18 19:00 01/06/18 18:59 Aspirin (ASA) 81 mg DAILY ORAL 01/01/18 09:00 01/31/18 08:59 01/02/18 09:11 Atorvastatin Calcium (Lipitor) 10 mg BEDTIME ORAL 12/31/17 21:00 01/30/18 20:59 01/01/18 20:52 Ceftriaxone Sodium 1 gm/ Dextrose 110 ml @ 220 mls/hr Q24H IVPB 01/01/18 09:00 01/08/18 08:59 01/02/18 09:07 Citalopram Hydrobromide (celeXA) 40 mg DAILY ORAL 01/01/18 09:00 01/31/18 08:59 01/02/18 09:07 Clonazepam (KlonoPIN) 1 mg TWICE A DAY ORAL 01/01/18 09:00 01/08/18 08:59 01/02/18 09:09 Doxycycline Monohydrate (Vibramycin) 100 mg EVERY 12 HOURS ORAL 01/01/18 21:00 01/08/18 20:59 01/02/18 09:08 Famotidine (Pepcid) 20 mg QHS ORAL 12/31/17 21:00 01/30/18 20:59 01/01/18 20:52 Furosemide (Lasix) 40 mg DAILY ORAL 01/01/18 09:00 01/31/18 08:59 01/02/18 09:08 Guaifenesin (Mucinex ER) 600 mg TWICE A DAY ORAL 01/01/18 18:00 01/31/18 17:59 01/02/18 09:08 Guaifenesin/ Dextromethorphan (Robitussin DM) 5 ml Q4H PRN ORAL For Cough 01/01/18 18:00 01/31/18 17:59 Heparin Sodium (Porcine) (Heparin 5000 units/ml) 5,000 units EVERY 12 HOURS SUBQ 01/01/18 21:00 01/31/18 20:59 01/02/18 09:39 Ibuprofen (Motrin) 600 mg Q8HR PRN ORAL FOR MILD PAIN 12/31/17 19:00 01/30/18 18:59 Losartan Potassium (Cozaar) 50 mg EVERY 12 HOURS ORAL 12/31/17 21:00 01/30/18 20:59 01/02/18 09:08 Potassium Chloride (K-Dur) 10 meq DAILY ORAL 01/01/18 09:00 01/31/18 08:59 01/02/18 09:08 Prednisone (predniSONE) 40 mg DAILY ORAL 01/02/18 09:00 02/01/18 08:59 01/02/18 09:07 Risperidone (RisperDAL) 3 mg TWICE A DAY ORAL 12/31/17 20:00 01/30/18 19:59 01/02/18 09:07 Salmeterol Xinafoate/ Fluticasone (Advair 250/50 Diskus) 1 puffs BID INH 01/01/18 18:00 01/31/18 17:59 NANCI ALVARADO M.D. Jan 02, 2018 16:02
[2018-01-02 20:00] VITALS: BP 170/85
--- NOTE | 2018-01-02 20:39 | General Progress Note ---
Assessment/Plan Problem List: (1) COPD exacerbation ICD Codes: J44.1 - Chronic obstructive pulmonary disease with (acute) exacerbation SNOMED: 988011293 Status: progressing Assessment/Plan no wheezing copd is improving afebrile vitals stabld dc in am Subjective ROS Limited/Unobtainable: Yes Allergies: Coded Allergies: ACETAMINOPHEN (Unverified Allergy, Severe, 01/01/18) IBUPROFEN (Unverified Allergy, Severe, 01/01/18) NAPROXEN (Unverified Allergy, Severe, 01/01/18) Uncoded Allergies: Advil, Aleve, Tylenol (Allergy, Intermediate, Anaphylaxis, 12/31/17) facial swelling Objective Last 24 Hour Vital Signs Date Time Temp Pulse Resp B/P (MAP) Pulse Ox O2 Delivery O2 Flow Rate FiO2 01/02/18 19:48 72 18 97 Room Air 21 01/02/18 16:00 97.0 60 20 120/77 96 97.0 01/02/18 13:45 Room Air 01/02/18 13:45 Room Air 01/02/18 12:00 98.1 67 18 153/84 95 98.1 01/02/18 09:08 136/75 01/02/18 08:00 98.4 66 20 136/75 91 98.4 01/02/18 07:45 76 16 97 Room Air 21 01/02/18 07:45 Room Air 01/02/18 04:14 97.1 61 17 136/69 96 97.1 01/02/18 04:00 Room Air 01/02/18 01:01 Room Air 01/02/18 01:00 Room Air 01/02/18 00:18 96.9 57 18 137/71 93 96.9 01/02/18 00:00 Room Air 01/01/18 20:52 141/74 01/01/18 20:41 96.6 60 18 141/74 93 Room Air 96.6 Intake and Output 01/01/18 01/02/18 19:00 07:00 Intake Total 760 ml 600 ml Balance 760 ml 600 ml Intake Oral 650 ml 600 ml IV Total 110 ml # Voids 3 2 # Bowel Movements 1 Height (Feet): 5 Height (Inches): 6.00 Weight (Pounds): 160 Neck: supple Cardiovascular: regular rhythm Respiratory/Chest: lungs clear Nita Verduzco MD Jan 02, 2018 20:39
[2018-01-02] MEDS ORDERED: NS 500ML ONE (22:46)
[2018-01-02] MEDS ORDERED: Tubing IV Secondary IV ONE (22:46)
[2018-01-03] VITALS: BP 140/76
[2018-01-03] MEDS: Albuterol/Ipratropium 3ml neb HHN SCH ×3 (01:00→14:02)
[2018-01-03 04:00] VITALS: BP 159/82
[2018-01-03 07:54] VITALS: BP 133/93
[2018-01-03] MEDS ORDERED: Levofloxacin 500mg tab ORAL SCH (09:45)
[2018-01-03] MEDS: Aspirin Baby 81mg ORAL SCH (10:18)
[2018-01-03] MEDS: Losartan 50mg tab ORAL SCH (10:19)
[2018-01-03] MEDS: Furosemide 40mg tab ORAL SCH (10:19)
[2018-01-03] MEDS: Heparin 5000 units/ml inj SUBQ SCH (10:21)
[2018-01-03] MEDS: guaiFENesin ER 600mg tab ORAL SCH (10:27)
[2018-01-03] MEDS: cefTRIAXone 1 GM in D5W 110 ML IVPB SCH (10:28)
[2018-01-03] MEDS: Citalopram 20mg Tab ORAL SCH (10:38)
[2018-01-03 11:56] VITALS: BP 179/88
[2018-01-03] MEDS: Advair 250/50 Inhaler - 14 dose INH SCH (12:17)
[2018-01-03] MEDS ORDERED: LEVAQUIN750 MG ORAL (13:25)
--- NOTE | 2018-01-03 13:25 | Pulmonology Progress Note ---
Assessment/Plan Problems: (1) COPD exacerbation Assessment/Plan SSESSMENT: * COPD with acute exacerbation - IMPROVED * Bronchitis * Current daily smoker * Schizophrenia * CHF, SSS S/P PM, HTN PLAN: * Optimize pulmonary hygiene/mobilize as tolerated * PRN O2 to keep SaO2 > 90% * RTC and PRN DUOnebs * Continue Advair, will add Spiriva prior to discharge * Pred 40 (D3/5) * Abx per ID --> to be D/C'd on PO Levaquin * Mucinex and PRN Robitussin * Monitor volumes * Continue Cozaar, inc Clonidine, monitor BP * DVT Px: Hep SQ * Aspiration precautions * Continue to encourage abstinence from tobacco * Should have PFT's and a screening CT chest as an outpatient Subjective Allergies: Coded Allergies: ACETAMINOPHEN (Unverified Allergy, Severe, 01/01/18) IBUPROFEN (Unverified Allergy, Severe, 01/01/18) NAPROXEN (Unverified Allergy, Severe, 01/01/18) Uncoded Allergies: Advil, Aleve, Tylenol (Allergy, Intermediate, Anaphylaxis, 12/31/17) facial swelling Subjective Afebrile, VSS x elevated BP, stable on RA Less cough, no wheezing, denies SOB No F/C, no CP, no NVDC Objective Last 24 Hour Vital Signs Date Time Temp Pulse Resp B/P (MAP) Pulse Ox O2 Delivery O2 Flow Rate FiO2 01/03/18 11:56 98.1 60 18 179/88 98 Room Air 98.1 01/03/18 10:19 166/80 01/03/18 07:54 97.6 69 18 133/93 96 Room Air 97.6 01/03/18 07:27 Room Air 01/03/18 07:27 Room Air 01/03/18 04:00 97.9 60 19 159/82 93 Room Air 97.9 01/03/18 01:00 Room Air 01/03/18 01:00 Room Air 01/03/18 00:00 98.1 61 18 140/76 95 Room Air 98.1 01/03/18 00:00 Room Air 01/02/18 20:50 170/85 01/02/18 20:00 Room Air 01/02/18 20:00 96.1 61 20 170/85 93 Room Air 96.1 01/02/18 19:59 74 20 99 Room Air 21 01/02/18 19:48 72 18 97 Room Air 21 01/02/18 16:00 97.0 60 20 120/77 96 97.0 01/02/18 13:45 Room Air 01/02/18 13:45 Room Air Intake and Output 01/02/18 01/03/18 19:00 07:00 Intake Total 1020 ml Balance 1020 ml Intake Oral 800 ml IV Total 220 ml # Voids 6 2 General Appearance: WD/WN, no acute distress HEENT: normocephalic, atraumatic, anicteric, mucous membranes moist Respiratory/Chest: chest wall non-tender, lungs clear, normal breath sounds, no respiratory distress Cardiovascular: normal peripheral pulses, normal rate, regular rhythm Abdomen: normal bowel sounds, soft, non tender, no organomegaly, non distended Extremities: no cyanosis, no clubbing, no edema Microbiology Date/Time Source Procedure Growth Status 12/31/17 15:06 Blood Blood Culture - Preliminary NO GROWTH AFTER 48 HOURS Resulted 12/31/17 15:06 Blood Blood Culture - Preliminary NO GROWTH AFTER 48 HOURS Resulted 12/31/17 16:05 Nasal Nares MRSA Culture - Final NO METHICILLIN RESISTANT STAPH AUREUS... Complete 12/31/17 16:05 Rectum VRE Culture - Final NO VANCOMYCIN RESISTANT ENTEROCOCCUS ... Complete Current Medications Medications (Trade) Dose Ordered Sig/Chava Route PRN Reason Start Time Stop Time Status Last Admin Dose Admin Acetaminophen/ Hydrocodone Bitart ([place] 5/325) 1 tab Q4H PRN ORAL Moderate Pain (Pain Scale 4-6) 12/31/17 19:00 01/07/18 18:59 Albuterol/ Ipratropium (Albuterol/ Ipratropium) 3 ml Q4H PRN HHN Shortness of Breath 01/01/18 17:30 01/06/18 17:29 Albuterol/ Ipratropium (Albuterol/ Ipratropium) 3 ml Q6HRT HHN 01/01/18 19:00 18 18:59 01/02/18 19:48 Aspirin (ASA) 81 mg DAILY ORAL 01/01/18 09:00 01/31/18 08:59 01/03/18 10:18 Atorvastatin Calcium (Lipitor) 10 mg BEDTIME ORAL 12/31/17 21:00 01/30/18 20:59 01/02/18 20:50 Ceftriaxone Sodium 1 gm/ Dextrose 110 ml @ 220 mls/hr Q24H IVPB 01/01/18 09:00 01/08/18 08:59 01/03/18 10:28 Citalopram Hydrobromide (celeXA) 40 mg DAILY ORAL 01/01/18 09:00 01/31/18 08:59 01/03/18 10:38 Clonazepam (KlonoPIN) 1 mg TWICE A DAY ORAL 01/01/18 09:00 01/08/18 08:59 01/03/18 10:19 Famotidine (Pepcid) 20 mg QHS ORAL 12/31/17 21:00 01/30/18 20:59 01/02/18 20:49 Furosemide (Lasix) 40 mg DAILY ORAL 01/01/18 09:00 01/31/18 08:59 01/03/18 10:19 Guaifenesin (Mucinex ER) 600 mg TWICE A DAY ORAL 01/01/18 18:00 01/31/18 17:59 01/03/18 10:27 Guaifenesin/ Dextromethorphan (Robitussin DM) 5 ml Q4H PRN ORAL For Cough 01/01/18 18:00 01/31/18 17:59 Heparin Sodium (Porcine) (Heparin 5000 units/ml) 5,000 units EVERY 12 HOURS SUBQ 01/01/18 21:00 01/31/18 20:59 01/03/18 10:21 Ibuprofen (Motrin) 600 mg Q8HR PRN ORAL FOR MILD PAIN 12/31/17 19:00 01/30/18 18:59 Levofloxacin (Levaquin) 750 mg DAILY ORAL 01/03/18 09:45 01/05/18 09:01 01/03/18 10:40 Losartan Potassium (Cozaar) 50 mg EVERY 12 HOURS ORAL 12/31/17 21:00 01/30/18 20:59 01/03/18 10:19 Potassium Chloride (K-Dur) 10 meq DAILY ORAL 01/01/18 09:00 01/31/18 08:59 01/03/18 10:19 Prednisone (predniSONE) 40 mg DAILY ORAL 01/02/18 09:00 02/01/18 08:59 01/03/18 10:20 Risperidone (RisperDAL) 3 mg TWICE A DAY ORAL 12/31/17 20:00 01/30/18 19:59 01/03/18 10:20 Salmeterol Xinafoate/ Fluticasone (Advair 250/50 Diskus) 1 puffs BID INH 01/01/18 18:00 01/31/18 17:59 NANCI ALVARADO M.D. Jan 03, 2018 13:25
[2018-01-03 15:55] VITALS: BP 161/81
--- NOTE | 2018-01-03 21:30 | Cardiology Report ---
APPROVED REPORT EKG Measurement Heart [id number] Normal sinus rhythm Possible Left atrial enlargement Left ventricular hypertrophy Nonspecific ST and T wave abnormality Prolonged QT Abnormal ECG
--- NOTE | 2018-01-05 18:15 | Discharge Summary ---
Discharge Summary Discharge Summary Discharge Summary DATE OF ADMISSION: 12/31/2017 DATE OF DISCHARGE: 01/03/2018 CONSULTANTS: Dr. Tomy Amaral BRIEF HOSPITAL COURSE: Patient is a 57-year-old female, with history of pacemaker, COPD, schizophrenia presented to ED complaining of cough and shortness of breath for 1 week. Shortness of breath was on exertion and at rest. She denied fever, chills, nausea or vomiting. She currently smokes 4 cigarettes a day. On evaluation at ED, patient was wheezing and had course breath sounds. She was given nebulizer treatments, and antibiotics. Chest x-ray showed no acute process. EKG was in normal sinus rhythm. She was admitted for acute COPD exacerbation. She was started on steroids, and was continued on Advair, Spiriva was added. She was given Mucinex and Robitussin. She was counseled on smoking cessation. She was given Rocephin and doxycycline. COPD exacerbation improved. She was recommended outpatient PFT and chest CT screening. She was eventually discharged home. FINAL DIAGNOSES: Acute COPD exacerbation Bronchitis Current daily smoker Schizophrenia Hypertension Sick sinus syndrome status post pacemaker CHF DISPOSITION: Patient was discharged back to board and care DISCHARGE MEDICATIONS: Refer to Discharge Medication List. DISCHARGE INSTRUCTIONS: Follow up with PCP in a week. I have been assigned to dictate discharge summary on this account, and I was not involved in the patient's management. Sabra Baez NP Jan 05, 2018 18:15
== END 2018-01-03 17:03 | DRG 192 ==
LOC: EDBD 14:38 → EMR 15:01 → 4W 16:30 → EDBEDREQ 16:45
DX: J44.1 Chronic obstructive pulmonary disease with (acute) exacerbation (principal); F20.9 Schizophrenia, unspecified; I11.0 Hypertensive heart disease with heart failure; I50.9 Heart failure, unspecified; J40 Bronchitis, not specified as acute or chronic; F17.200 Nicotine dependence, unspecified, uncomplicated; Z95.0 Presence of cardiac pacemaker; Z88.6 Allergy status to analgesic agent
CPT/HCPCS: 36415; 71045; 80053; 81003; 83605; 83880; 84484; 85025; 85610; 85730; 87040; 87081; 93005; 94640; 94664; 99285; J7620